=== PATIENT | male | born 1990 | race Caucasian/White ===

== ENCOUNTER 2018-09-19 05:13 | Observation (INO) ==
--- NOTE | 2018-09-15 15:30 | PAT Medication Instructions ---
Medication Instructions Date of Service September 15, 2018 Home Medications bupropion HCl [Wellbutrin XL] 300 mg PO QAM buspirone 10 mg PO BID desipramine [Norpramin] 20 mg PO HS gemfibrozil 600 mg PO BID lorazepam 0.5 mg PO DAILY PRN omeprazole 40 mg PO BID testosterone cypionate 100 mg SUBCUT WK Continue as directed testosterone cypionate 100 mg SUBCUT WK STOP taking 48 hours before surgery gemfibrozil 600 mg PO BID Take morning of surgery With a small sip of water, OTHERWISE NOTHING TO EAT OR DRINK AFTER MIDNIGHT: bupropion HCl [Wellbutrin XL] 300 mg PO QAM buspirone 10 mg PO BID lorazepam 0.5 mg PO DAILY PRN (if needed) omeprazole 40 mg PO BID Take evening before surgery buspirone 10 mg PO BID desipramine [Norpramin] 20 mg PO HS lorazepam 0.5 mg PO DAILY PRN (if needed) omeprazole 40 mg PO BID Other Notes If you have any questions please call us at [phone] or [phone] or [phone] or [phone]
--- NOTE | 2018-09-16 14:22 | Anesthesiology Consultation ---
Date of Service September 16, 2018 Assessment & Plan (1) Encounter for pre-operative examination: - Check test AM DOS - Patient anxious about PONV (no personal issues but anxious/requesting antiemetics). - Transgender female to male: Patient uses male pronouns and goes by "Olayinka" Chart Review Chart Review: Acceptable Risk for Surgery and Patient seen in Pre Admission Testing Teaching & Discussion Pre-Anesthesia Teaching/Discussion Notes: Instructed NPO after midnight before surgery,except medications with 15 cc of water. Medication instructions provided according to the PAT guidelines. History Surgery Operation Date: 09/19/18 07:00 Proposed Procedures p Total Laparoscopic Hysteretomy, Possible Laparoscopic Vaginal Hysterectomy, - Hira Strong MD s Possible Lapartomy, Bilateral Sapingoropherectomy, Cystoscopy - Hira Strong MD Height/Weight Height: 5 ft 4 in Weight: 80.1 kg Allergies Allergy/AdvReac Type Severity Reaction Status Date / Time citalopram [From Celexa] Allergy Intermediate "PSYCH Verified 09/08/18 15:38 PROBLEMS" Medications Home Medications Medication Instructions Recorded Confirmed Last Taken bupropion HCl [Wellbutrin XL] 300 mg PO QAM 09/08/18 09/08/18 Unknown buspirone 10 mg PO BID 09/08/18 09/08/18 Unknown desipramine [Norpramin] 20 mg PO HS 09/08/18 09/08/18 Unknown gemfibrozil 600 mg PO BID 09/08/18 09/08/18 Unknown lorazepam 0.5 mg PO DAILY PRN 09/08/18 09/08/18 Unknown omeprazole 40 mg PO BID 09/08/18 09/08/18 Unknown testosterone cypionate 100 mg SUBCUT WK 09/08/18 09/08/18 Unknown Past Medical History Medical History Anxiety Depression GERD (gastroesophageal reflux disease) controlled Hyperlipidemia Irritable bowel syndrome Transgender Female to male transgender; male pronouns Exercise / Class Metabolic Activity II 4-5 Yardwork/Stairs/Walk up hill Past Family History Family History Mother Family history of diabetes mellitus Father Family history of diabetes mellitus Past Surgical History Surgical History History of esophagogastroduodenoscopy (EGD) Past Anesthesia History No Hx of Anesthesia Complications Mother- "slow to wake" History of PONV No Hx of PONV and No Hx of Motion Sickness Social History Smoking Status: Former smoker tobacco type: cigarettes Do You Dip or Chew Tobacco: Yes (intermittent use- advised npo dos) Smoking End Date: Quit 1 year ago; hx intermittent use x 5 years Hx Alcohol Use: No Hx Substance Use: No substance use type: does not use Review of Systems Reflux controlled. Patient denies chest pain, shortness of breath, dyspnea on exertion, cough, wheezing, palpitations. Physical Exam Vital Signs VITALS BP 119/81 P 91 TEMP 98.1 SP02 100%RA RESP 18 PHYSICAL Full neck and c-spine range of motion. Full TMJ range of motion. TMD 3 finger breaths Mallampati Score 1 Dentition: upper left front tooth "repaired", left lower molar with recent root canal repair (has not been crowned yet) Lungs: clear throughout to auscultation Cardiac: regular rate and rhythm, no murmurs noted Spine: normal Carotid arteries: negative bruit Extremities: no edema Testing Laboratory Results 09/16/18 14:40 Blood Type A Positive 09/16/18 14:40 Antibody Screen NEGATIVE 09/16/18 14:40 Electrocardiogram Date: 01/24/18 Findings: + NSR @ (73)
[2018-09-16 16:04] LABS: Basophils # (auto) 0.04 K/uL (0-0.2); Basophils % (auto) 0.7 %; Eosinophils # (auto) 0.05 K/uL (0-0.5); Eosinophils % (auto) 0.8 %; Immature Granulocytes # (auto) 0.01 K/uL (0.00-0.02); Immature Granulocytes % (auto) 0.2 %; Lymphocytes # (auto) 2.29 K/uL (1.2-3.4); Lymphocytes % (auto) 38.2 %; Mean Corpuscular Hgb Conc 34.1 g/dL (32-36); Mean Corpuscular Volume 89.2 fL (80-100); Monocytes # (auto) 0.62 K/uL (0.11-0.59); Monocytes % (auto) 10.3 %; Neutrophils # (auto) 2.99 K/uL (1.4-6.5); Neutrophils % (auto) 49.8 %; Platelet Count 301 K/uL (130-400); RDW Coefficient of Variation 12.8 % (11.5-14.5); RDW Standard Deviation 41.5 fL (36.4-46.3)
[2018-09-19 05:49] LABS: Basophils # (auto) 0.03 K/uL (0-0.2); Basophils % (auto) 0.5 %; Eosinophils # (auto) 0.05 K/uL (0-0.5); Eosinophils % (auto) 0.8 %; Immature Granulocytes # (auto) 0.01 K/uL (0.00-0.02); Immature Granulocytes % (auto) 0.2 %; Lymphocytes # (auto) 2.67 K/uL (1.2-3.4); Lymphocytes % (auto) 41.2 %; Mean Corpuscular Volume 88.5 fL (80-100); Mean Platelet Volume 9.7 fL (7.4-10.4); Monocytes # (auto) 0.38 K/uL (0.11-0.59); Monocytes % (auto) 5.9 %; Neutrophils # (auto) 3.34 K/uL (1.4-6.5); Neutrophils % (auto) 51.4 %; Platelet Count 273 K/uL (130-400); RDW Coefficient of Variation 12.7 % (11.5-14.5); RDW Standard Deviation 40.7 fL (36.4-46.3); White Blood Count 6.48 K/uL (4.8-10.8)
[2018-09-19] MEDS ORDERED: LR 15ML/HR IV SCH (06:00)
[2018-09-19] MEDS ORDERED: LACTATED RINGER'S 1,000 ML IV SCH (06:00)
[2018-09-19] MEDS ORDERED: CEFAZOLIN 2000MG 2,000 MG/15 ML SYR IV SCH (06:00)
[2018-09-19] MEDS ORDERED: ONDANSETRON INJ 2 MG/ML 2 ML VIAL IV PRN ×2 (06:22→10:28)
[2018-09-19] MEDS ORDERED: ePHEDrine sulfate 50 MG/ML AMP IV PRN (06:22)
[2018-09-19] MEDS ORDERED: ATROPINE SULFATE 0.1 MG/ML 10ML SYR IV PRN (06:22)
[2018-09-19 06:24] LABS: Mean Corpuscular Hgb Conc 34.7 g/dL (32-36)
[2018-09-19] MEDS ORDERED: SCOPOLAMINE 1.5 MG TDSY ONE (06:31)
[2018-09-19] MEDS ORDERED: SCOPOLAMINE 1.5 MG TDSY TD ONE (06:31)
[2018-09-19] MEDS ORDERED: MIDAZOLAM HCL 1 MG/ML 2ML VIAL ONE ×2 (06:35→07:19)
[2018-09-19] MEDS ORDERED: HYDROmorphone INJ 2 MG/ML SYR/VIAL ONE ×3 (06:35→09:41)
[2018-09-19] MEDS ORDERED: fentaNYL citrate 100 MCG/2 ML VIAL ONE ×7 (06:35→09:39)
--- NOTE | 2018-09-19 06:45 | History & Physical Bridge Note ---
Date of Service September 19, 2018 History & Physical Bridge Note I have examined the patient, reviewed the History & Physical and in the interval since the performance of the History & Physical I have noted the following changes of clinical significance: no changes noted
[2018-09-19] MEDS ORDERED: BUPIVACAINE 0.5 % 5 MG/1 ML MPF 30ML VIAL ONE (06:58)
[2018-09-19] MEDS ORDERED: ONDANSETRON INJ 2 MG/ML 2 ML VIAL ONE (08:03)
[2018-09-19] MEDS ORDERED: raNITIdine HCl 25 MG/ML VIAL IV ONE (08:03)
[2018-09-19] MEDS ORDERED: METOCLOPRAMIDE HCL INJ 5 MG/ML 2 ML VIAL ONE (08:03)
[2018-09-19] MEDS ORDERED: PROPOFOL IV EMULSION 10 MG/ML 20 ML VIAL IV ONE (08:03)
[2018-09-19] MEDS ORDERED: DEXAMETHASONE SOD INJ 4 MG/ML VIAL ONE (08:03)
[2018-09-19] MEDS ORDERED: LIDOCAINE HCL 2% 2 ML VIAL/AMP(20MG/ML) INFIL ONE (08:03)
[2018-09-19] MEDS ORDERED: METOPROLOL TARTRATE 1 MG/ML VIAL IV ONE ×2 (08:03→10:34)
[2018-09-19] MEDS ORDERED: ROCURONIUM BROMIDE 10 MG/ML 5 ML VIAL ONE ×2 (08:03→10:00)
[2018-09-19] MEDS ORDERED: ESMOLOL HCL INJ 10 MG/ML 10ML VIAL IV ONE (08:03)
[2018-09-19] MEDS ORDERED: VOLUVEN IN NSS IV ONE (09:19)
[2018-09-19] MEDS ORDERED: FLOSEAL HEMOSTATIC MATRIX 10ML TOP ONE (09:42)
[2018-09-19] MEDS ORDERED: KETOROLAC 30 MG/ML VIAL ONE (10:03)
[2018-09-19] MEDS ORDERED: SIMETHICONE 80 MG CHEW PO PRN (10:28)
[2018-09-19] MEDS ORDERED: ZOLPIDEM TARTRATE 5 MG TAB PO PRN (10:28)
[2018-09-19] MEDS ORDERED: PROMETHAZINE HCL 12.5 MG in SODIUM CHLORIDE 0.9% 50 ML IV PRN (10:28)
[2018-09-19] MEDS ORDERED: BISACODYL 10 MG SUPP PR PRN (10:28)
[2018-09-19] MEDS ORDERED: KETOROLAC 30 MG/ML VIAL IV PRN (10:28)
[2018-09-19] MEDS ORDERED: MAGNESIUM HYDROXIDE SUSP 30 ML UDC PO PRN (10:28)
[2018-09-19] MEDS ORDERED: OXYCODONE/ACETAMINOPHEN 5mg/325mg TAB PO PRN (10:28)
[2018-09-19] MEDS ORDERED: PROMETHAZINE HCL 25 MG in SODIUM CHLORIDE 0.9% 50 ML IV PRN (10:28)
[2018-09-19] MEDS ORDERED: ACETAMINOPHEN 325 MG TAB PO PRN (10:28)
[2018-09-19] MEDS: fentaNYL citrate 100 MCG/2 ML VIAL IV PRN ×4 (10:36→10:51)
--- NOTE | 2018-09-19 10:56 | Anesthesiology Progress Note ---
Date of Service September 19, 2018 Anesthesia Post Procedure Vital Signs Vital Signs: Temp Pulse Pulse Resp BP Pulse Ox 09/19/18 10:29 98.4 F 106 H 14 121/68 100 09/19/18 05:52 98.4 F 104 H 20 147/79 H 98 Pain Intensity Abdomen: Pain Intensity: 8 Transfer of Care Handoff Completed per policy Notes Mental Status: alert / awake / arousable and participated in evaluation Patient Amnestic to Procedure: Yes Nausea / Vomiting: adequately controlled Pain: adequately controlled Airway Patency, RR, SpO2: stable & adequate BP & HR: stable & adequate Hydration State: stable & adequate Anesthetic Complications: no major complications apparent and Pt Satisfied with anesthetic care
[2018-09-19] MEDS: LACTATED RINGER'S 1,000 ML IV SCH ×2 (12:17→20:08)
[2018-09-19] MEDS ORDERED: LORazepam 0.5 MG TAB PO PRN (12:41)
[2018-09-19] MEDS: OXYCODONE/ACETAMINOPHEN 5mg/325mg TAB PO PRN ×3 (13:00→21:54)
[2018-09-19] MEDS: PANTOprazole 40 MG TAB PO SCH ×2 (14:17→21:05)
[2018-09-19] MEDS: GEMFIBROZIL 600 MG TAB PO SCH ×2 (14:17→21:05)
[2018-09-19] MEDS: BuPROPion XL 300 MG TABCR PO SCH (15:14)
[2018-09-19] MEDS ORDERED: CHECK SCOPOLAMINE PATCH PLACEMENT SCH (16:00)
[2018-09-19] MEDS ORDERED: Nursing to Pharmacy Communication ONE (16:36)
[2018-09-19 20:12] LABS: Hematocrit (blood only) 40.3 % (42-52); Hemoglobin 13.7 g/dL (14.0-18.0)
[2018-09-19] MEDS ORDERED: DESIPRAMINE HCL 10 MG TAB PO SCH (21:00)
[2018-09-19] MEDS: DOCUSATE SODIUM 100 MG CAP PO SCH ×2 (21:05→21:09)
[2018-09-20] MEDS: OXYCODONE/ACETAMINOPHEN 5mg/325mg TAB PO PRN ×3 (02:38→11:12)
[2018-09-20] MEDS: LACTATED RINGER'S 1,000 ML IV SCH ×2 (02:40→10:41)
--- NOTE | 2018-09-20 02:56 | Operative Report ---
DATE OF OPERATION: 09/19/2018 INDICATION FOR PROCEDURE: This is a 28-year-old with gender dysphoria and dysmenorrhea. The patient wishes to have total laparoscopic hysterectomy and bilateral salpingo-oophorectomy. PREOPERATIVE DIAGNOSES: 1. Gender dysphoria. 2. Dysmenorrhea. POSTOPERATIVE DIAGNOSES: 1. Gender dysphoria. 2. Dysmenorrhea. PROCEDURES: Total laparoscopic hysterectomy with bilateral salpingo-oophorectomy and left ovarian cystectomy. SURGEON: Hira Strong MD SENIOR MANAGER QUALITY ASSURANCE: Dr. Crenshaw. ANESTHESIA: General. ESTIMATED BLOOD LOSS: 100 mL. IV FLUIDS: 2 liters. URINE OUTPUT: 125 mL. PATHOLOGY: Uterus with bilateral tubes and ovary as well as left ovarian cyst and cervix. COMPLICATIONS: None. DRAINS: Rios catheter. DISPOSITION: Stable to recovery room. FINDINGS: Normal female escutcheon. Uterus and cervix appeared grossly normal. Both adnexa appeared grossly normal. There was, however, a cystic lesion on the left adnexa, lesion looked more like a paratubal cyst. Rest of the abdomen and pelvis was unremarkable. PROCEDURE: The patient was taken to the operating room where he was prepped and draped in normal sterile fashion in dorsal lithotomy position. A weighted speculum was placed in the vagina. [place] retractor was used to retract the anterior part of the vagina. Single tooth tenaculum was used to grab the cervix. Uterine manipulator was placed in the uterus and sutured with Vicryl. This was to help manipulate the uterus during laparoscopic procedure. Rios catheter was placed in the bladder. Attention was paid to the abdominal part of the procedure where an infraumbilical incision was made with a scalpel and carried down to the fascia. The fascia was grabbed with 2 Kochers. Veress needle was introduced into the fascia at a 45 degree angle while tenting up the abdomen. Intraabdominal placement was confirmed with a water filled syringe. The abdomen was insufflated with 3.0 liters of CO2 gas. Veress needle was removed. A 10 mm trocar was placed in the abdomen under direct visualization. This was a nonbladed trocar. Once inside the abdomen, the findings are dictated above. Two accessory ports were placed, all under direct visualization. Another 10 mm trocar was placed on the left lower quadrant. Two more 5 mm trocars were placed. The right round ligament was identified and mid portion grabbed with LigaSure, fulgurated. The right side of the bladder was carefully dissected off the lower segment of the uterus. The infundibulopelvic was identified on that side, grabbed and fulgurated. Same procedure was performed on the contralateral side. The bladder was carefully dissected using traction and retraction from the lower segment of the uterus. The uterines were identified and fulgurated on both sides. There was good hemostasis. The broad ligament was dissected down towards the cervix. Cardinal ligament was dissected as well. At this point, the uterine manipulator could be palpated from below. The colpotomy was performed successfully. The cervix and uterus and tubes were removed in 1 piece. The colpotomy site showed good hemostasis. The vaginal cuff was closed with EndoStitch suture in 2 layers. There was good hemostasis. Copious amount of irrigation was used to irrigate the abdomen and pelvis. FloSeal was applied to the colpotomy site for further hemostasis. Attention was paid to the cystoscopy part of the procedure which was performed without difficulty. There were no sutures seen in the bladder. Both urethral orifices were seen jetting blue dye, indigo carmine had been given earlier. Cystoscope was removed. A new bladder catheter was placed into the bladder. Attention was paid back to the abdominal part of the procedure where the laparoscopic incisions trocar sites were all closed. The two 10 mm sites were closed in 2 layers. Fascia was grabbed and closed with Vicryl. All skin incisions were closed with 4-0 Monocryl. The patient is to return to recovery in stable condition. All instruments were removed from the abdomen and the vagina and accounted for x2. The patient is doing well in recovery. I attest to the content of the Intraoperative Record and any orders documented therein. Any exception s are noted below.
[2018-09-20 06:13] LABS: Basophils # (auto) 0.03 K/uL (0-0.2); Basophils % (auto) 0.4 %; Eosinophils # (auto) 0.04 K/uL (0-0.5); Eosinophils % (auto) 0.5 %; Hematocrit (blood only) 41.9 % (42-52); Hemoglobin 13.9 g/dL (14.0-18.0); Immature Granulocytes # (auto) 0.02 K/uL (0.00-0.02); Immature Granulocytes % (auto) 0.3 %; Lymphocytes # (auto) 3.13 K/uL (1.2-3.4); Lymphocytes % (auto) 40.2 %; Mean Corpuscular Hgb Conc 33.2 g/dL (32-36); Mean Corpuscular Volume 89.1 fL (80-100); Mean Platelet Volume 9.5 fL (7.4-10.4); Monocytes # (auto) 0.65 K/uL (0.11-0.59); Monocytes % (auto) 8.3 %; Neutrophils # (auto) 3.92 K/uL (1.4-6.5); Neutrophils % (auto) 50.3 %; Platelet Count 237 K/uL (130-400); RDW Standard Deviation 42.3 fL (36.4-46.3); White Blood Count 7.79 K/uL (4.8-10.8)
[2018-09-20 06:50] LABS: BUN Creatinine Ratio 8.2 (10-20); Calcium 8.6 mg/dl (8.5-10.1); Est GFR (Non-African American) 97.5; Potassium 3.4 mmol/L (3.5-5.1)
[2018-09-20] MEDS: DOCUSATE SODIUM 100 MG CAP PO SCH (08:12)
[2018-09-20] MEDS: PANTOprazole 40 MG TAB PO SCH (08:13)
[2018-09-20] MEDS: BuPROPion XL 300 MG TABCR PO SCH (08:13)
[2018-09-20] MEDS: GEMFIBROZIL 600 MG TAB PO SCH (08:13)
[2018-09-20] MEDS ORDERED: TESTOSTERONE CYPIONATE IM 200 MG/ML VIAL IM SCH (09:00)
--- NOTE | 2018-09-20 11:45 | Obstetrical Progress Note ---
Date of Service September 20, 2018 Assessment & Plan (1) Postop check: s/p lap Hys pt doing well d/c home with instructions Subjective Review of Systems All systems reviewed & are unremarkable except as noted in HPI & below Physical Exam Constitutional WD/WN, vitals as above Eyes PERRL, conjunctivae normal, anicteric sclerae ENMT external ear and nose normal, oropharynx normal Neck trachea midline, no thyromegaly Respiratory normal respiratory effort, lungs clear to auscultation Cardiovascular RRR, no murmur, no edema Chest (Breasts) normal inspection/palpation of breasts Gastrointestinal (Abdomen) normal bowel sounds, soft, nontender, no hepatosplenomegaly Musculoskeletal no cyanosis or clubbing, extremities motor strength 5/5 Skin + incision (Incision clean,dry and intact) Neurologic patellar DTR's 2+ bilat, sensation intact Psychiatric A+Ox3, euthymic affect Lymphatic no cervical or axillary lymphadenopathy Results & Data Vital Signs (Past 12 Hours) Vital Signs Temp Pulse Resp BP Pulse Ox 09/20/18 07:14 36.6 C 80 18 134/77 99 09/20/18 03:34 36.7 C 87 18 136/86 97 09/19/18 23:45 36.7 C 96 H 15 122/77 97
[2018-09-23 13:45] LABS: Hemoglobin 16.5 g/dL (14.0-18.0); Red Blood Count 5.37 M/uL (4.7-6.1)
[2018-09-23 13:45] LABS: Hematocrit (blood only) 49.6 % (42-52); Hemoglobin 16.9 g/dL (14.0-18.0); Red Blood Count 5.56 M/uL (4.7-6.1)
[2018-09-23 13:46] LABS: Hematocrit (blood only) 47.5 % (42-52)
--- NOTE | 2018-09-29 12:11 | Discharge Summary ---
CHIEF COMPLAINT: 1. Gender dysphoria. 2. Dysmenorrhea. 3. The patient wishes to have hysterectomy with bilateral salpingo-oophorectomy. HISTORY OF PRESENT ILLNESS: This is a 28-year-old gender dysphoric patient who wished to have hysterectomy. She has been on testosterone for several years. Has had cramping and irregular spotting. It has gotten worse and wishes to have hysterectomy. The patient has been seen by PCP and psych and has been cleared for surgery. The patient underwent total laparoscopic hysterectomy with bilateral salpingo-oophorectomy and cystoscopy. Surgery was unremarkable. Details of surgery are in the surgical note. The patient was discharged home the next day on 09/20/2018 in stable condition. PAST MEDICAL HISTORY: 1. Gender dysphoria. 2. Gastroesophageal reflux disease. 3. Hypertriglyceridemia. 4. Wrist fracture. PAST SURGICAL HISTORY: The patient has had EGD in the past. SOCIAL HISTORY: Denies tobacco, drug, or alcohol use. ALLERGIES: THE PATIENT IS ALLERGIC TO CELEXA. REVIEW OF SYSTEMS: Negative except as dictated in the HPI. PHYSICAL EXAMINATION: VITAL SIGNS: On 09/20/2018 showed blood pressure of 134/77, temperature of 36.6, respirations of 18, and pulse of 80. HEART: S1, S2, regular rhythm and rate. LUNGS: Clear to auscultation bilaterally. ABDOMEN: Nontender, nondistended. Incision sites are clean, dry, and intact. Has positive bowel sounds. EXTREMITIES: No cyanosis, clubbing, or edema. LABORATORY DATA: Hemoglobin is 13.9, hematocrit is 41.9. CONDITION ON DISCHARGE: Stable. OPERATION: Total laparoscopic hysterectomy with bilateral salpingo-oophorectomy as well as cystoscopy. PLAN ON DISCHARGE: Stable. The patient is discharged home with instructions regarding activity, diet, and followup appointment.
== END 2018-09-20 13:05 | disposition home or self-care (01) ==
LOC: ASU 05:13 → 3N 05:13 → EDSEX 10:28